=== PATIENT | female | born 1950 | race Two or more races ===

== ENCOUNTER 2017-09-19 09:57 | Outpatient (CLI) | payer OTHER ==
[~2017-09-19 09:57] MED LIST: PREVACID30 MG PO
== END 2017-09-19 10:00 | disposition home or self-care (01) ==
LOC: NUCLEAR 09:57
DX: C50.511 Malignant neoplasm of lower-outer quadrant of right female breast (principal); Z17.0 Estrogen receptor positive status [ER+]
CPT/HCPCS: 78815; A9552

== ENCOUNTER 2023-06-09 01:22 | Emergency (ER) | payer OTHER ==
[~2023-06-09] VITALS: Ht 149.9 cm; Wt 70.3 kg
== END 2023-06-09 05:09 | disposition home or self-care (01) ==
LOC: ER
DX: K29.70 Gastritis, unspecified, without bleeding (principal); R11.10 Vomiting, unspecified; Z91.018 Allergy to other foods
CPT/HCPCS: 96365; 96372; 99282; J2405; J2765; J3490